=== PATIENT | female | born 1955 | race Caucasian/White ===

== ENCOUNTER 2024-11-16 16:12 | Emergency (ER) | payer MEDICARE, OTHER ==
[~2024-11-16] VITALS: Ht 160 cm; Wt 66.7 kg
[2024-11-16 18:34] LABS: BASOPHILS % 0.5 % (0.0-1.0); EOSINOPHILS % 1.4 % (0.0-6.0); LYMPHOCYTES % 22.8 % (18.0-39.1); MONOCYTES % 7.3 % (4.4-11.3); NEUTROPHILS % 67.4 % (38.7-80.0); RED CELL DISTRIBUTION WIDTH 17.9 % (11.7-14.4)
[2024-11-16 18:58] LABS: EST GLOMERULAR FILTRATION RATE 24.0 ML/MIN (>=60)
[2024-11-16 19:51] VITALS: PULSE 95; RESP 15; TEMP 98.4; O2SAT 100
== END 2024-11-16 20:25 | disposition other institution (70) ==
LOC: ER 17:08
DX: S06.5X0A Traumatic subdural hemorrhage without loss of consciousness, initial encounter (principal); M54.2 Cervicalgia; M54.6 Pain in thoracic spine; M54.50 Low back pain, unspecified; W07.XXXA Fall from chair, initial encounter; Y92.128 Other place in nursing home as the place of occurrence of the external cause; N28.9 Disorder of kidney and ureter, unspecified; I10 Essential (primary) hypertension; E11.65 Type 2 diabetes mellitus with hyperglycemia; I25.10 Atherosclerotic heart disease of native coronary artery without angina pectoris; D64.9 Anemia, unspecified
CPT/HCPCS: 36415; 70450; 71045; 72125; 72128; 80053; 82550; 83690; 83880; 84484; 85025; 93005; 99284